=== PATIENT | female | born 1955 | race Caucasian/White ===

== ENCOUNTER 2017-03-28 13:46 | Outpatient (CLI) | payer BC ==
[~2017-03-28 13:46] MED LIST: HYDR-569 PO
[2017-03-28 13:48] VITALS: BP 109/71
== END 2017-03-28 14:35 | disposition home or self-care (01) ==
LOC: ORTHO 13:46
PROVIDERS: ATTEND Nurse Practitioner Family
DX: S52.502D Unspecified fracture of the lower end of left radius, subsequent encounter for closed fracture with routine healing (principal); M19.032 Primary osteoarthritis, left wrist; X58.XXXD Exposure to other specified factors, subsequent encounter
CPT/HCPCS: 73110